=== PATIENT | male | born 1970 | race Hispanic/Latino ===

== ENCOUNTER 2024-03-16 11:58 | Emergency (ER) | payer OTHER ==
[2024-03-16 12:40] LABS: #Basophils 0.03 10x3/uL (0.0-0.2); %Basophils 0.4 % (0.0-1.0); %Eosinophils 0.5 % (0.0-10.0); %Lymphocytes 10.5 % (21.0-51.0); %Monocytes 10.5 % (0.0-10.0); %Neutrophils 77.6 % (42.0-75.0); Hematocrit 31.8 % (42.0-52.0); Hemoglobin 10.8 g/dL (14.0-18.0); Mean Corpuscular Hemoglobin 30.2 pg (27.0-31.0); Mean Corpuscular Volume 88.8 fL (78.0-98.0); Mean Platelet Volume 8.6 fL (7.4-10.4); Platelet Count 141 10x3/uL (130-400); RBC Distribution Width 13.2 % (11.5-14.5); Red Blood Cell (RBC) Count 3.58 mill/uL (4.70-6.10)
[2024-03-16 12:46] LABS: CRP,High Sensitivity (Inhouse) 5.26 mg/dL (< or = 0.5)
[2024-03-16 12:47] LABS: ALT (SGPT) 31 U/L (8-55); AST (SGOT) 22 U/L (5-34); Albumin 3.3 g/dL (3.5-5.0); Alkaline Phosphatase 104 U/L (40-110); Anion Gap 11 mmol/L (10-20); BUN (Urea Nitrogen) 18 mg/dL (8.4-25.7); Bilirubin, Total 0.5 mg/dL (0.2-1.2); Calc. Creatinine Clearance 0 mL/min (70-130); Calcium 9.1 mg/dL (7.8-10.44); Carbon Dioxide 25 mmol/L (22-29); Chloride 106 mmol/L (98-107); Estimated GFR 77; Globulin 3.7 g/dL (2.4-3.5); Glucose 127 mg/dL (70-105); Potassium 3.9 mmol/L (3.5-5.1); Sodium 138 mmol/L (136-145)
[2024-03-16] MEDS ORDERED: Ketorolac Tromethamine 30 MG (1 mL) VIAL ONE (12:49)
[2024-03-16] MEDS ORDERED: Morphine 4 MG/ML VIAL ONE (12:52)
[2024-03-16] MEDS ORDERED: Lidocaine 1% PF 5 ML VIAL ONE (12:53)
[2024-03-16] MEDS ORDERED: Lidocaine 1% w/Epinephrine 1:100K 20 ML VIAL ONE (12:53)
[2024-03-16 16:07] LABS: RBC Count-Automated (BF) 7396 /cu.mm; WBC/Nucleated-Auto (BF) 18885 /cu.mm
[2024-03-16 16:08] LABS: BF Color Yellow; Body Fluid Source Synovial Fluid; Clarity Cloudy/Turbid (Clear); Tube # EDTA
[2024-03-16 16:45] LABS: BF Segmented Neutrophils 83 %; Cell Count Non Hematic 14 %; Lymphocytes 3 %
[2024-03-16] MEDS ORDERED: HYDROcodone/Acetaminophen 5/325 mg Tablet ONE (17:27)
== END 2024-03-16 17:40 ==
LOC: EEVIPCON 11:58 → ERS 11:58
DX: M10.9 Gout, unspecified (principal); M25.462 Effusion, left knee; E11.9 Type 2 diabetes mellitus without complications; I10 Essential (primary) hypertension; F32.A Depression, unspecified; Z90.89 Acquired absence of other organs
CPT/HCPCS: 20610; 36415; 80053; 82945; 85025; 85060; 86141; 87070; 87205; 89051; 89060; 93005; J1885; J2272